=== PATIENT | female | born 1960 | race Caucasian/White ===

== ENCOUNTER → 2016-09-25 12:10 | Day surgery (SDC) | payer BC ==
[~2016-09-25 12:10] MED LIST: Buffered Lidocaine 1% SYRIN* 3 ML/SYR SYRINGE INTRADERM ONE; Bupivacaine 0.25% SDV* 30 ML ONE; Dexamethasone IV* 4 MG/ML 1 ML (4 MG) ONE; Ketorolac INJ* 30 MG/ML 1 ML VIAL ONE; Lidocaine 1% INJ* 10 MG/ML 30 ML SDV ONE; Lidocaine 2% PF* 5 ML VIAL ONE; Midazolam* 1 MG/ML 5 ML VIAL (5 MG) ONE; Ondansetron INJ* 2 MG/ML VIAL ONE; Phenylephrine INJ* 10 MG/ML 1 ML VIAL (10 MG) ONE; Phenylephrine IV* 40 MCG/ML 10 ML SYRINGE ONE; Propofol* 10 MG/ML 20 ML BTL IV PUSH ONE; Succinylcholine* 20 MG/ML 10 ML VIAL ONE; ceFAZolin 2 GM PREMIX(*) 2 GM/50 ML BAG IVPB ONE; fentaNYL* 50 MCG/ML 5 ML VIAL (250 MCG VIAL) ONE
[2016-09-25 14:07] VITALS: BP 124/77
== END | disposition home or self-care (01) ==
LOC: OREAST 12:10
PROVIDERS: ATTEND Plastic Surgery
PROC: 0LN70ZZ Release Right Hand Tendon, Open Approach (ICD-10-PCS; principal; 2016-09-25 13:30)
DX: M65.331 Trigger finger, right middle finger (principal)
CPT/HCPCS: J0330; J0690; J1100; J1885; J2001; J2250; J2405; J2704; J3010

== ENCOUNTER 2018-05-25 07:27 | Day surgery (SDC) | payer BC ==
[~2018-05-25 07:27] MED LIST changes: +Acetaminophen TAB* 325 MG PO ONE; +Buffered Lidocaine 0.9% SYRIN* 5 ML/SYR SYRINGE INTRADERM ONE; -Buffered Lidocaine 1% SYRIN* 3 ML/SYR SYRINGE INTRADERM ONE; -Bupivacaine 0.25% SDV* 30 ML ONE; -Dexamethasone IV* 4 MG/ML 1 ML (4 MG) ONE; +DiMENhydriNATE IV* 50 MG/ML VIAL IV PUSH PRN; +HYDROcodone/ACETAMIN 5-325 MG* 1 TAB PO PRN; -Ketorolac INJ* 30 MG/ML 1 ML VIAL ONE; -Lidocaine 1% INJ* 10 MG/ML 30 ML SDV ONE; -Lidocaine 2% PF* 5 ML VIAL ONE; -Midazolam* 1 MG/ML 5 ML VIAL (5 MG) ONE; +Naloxone* 0.4 MG/ML 1 ML VIAL IV PRN; +Ondansetron INJ* 2 MG/ML VIAL IV PRN; -Ondansetron INJ* 2 MG/ML VIAL ONE; +PROCHLORPERAZINE INJ 5 MG/ML 2 ML VIAL IV PRN; -Phenylephrine INJ* 10 MG/ML 1 ML VIAL (10 MG) ONE; -Phenylephrine IV* 40 MCG/ML 10 ML SYRINGE ONE; -Propofol* 10 MG/ML 20 ML BTL IV PUSH ONE; -Succinylcholine* 20 MG/ML 10 ML VIAL ONE; -ceFAZolin 2 GM PREMIX(*) 2 GM/50 ML BAG IVPB ONE; +fentaNYL* 50 MCG/ML 2 ML VIAL (100 MCG VIAL) IV PRN; -fentaNYL* 50 MCG/ML 5 ML VIAL (250 MCG VIAL) ONE
[2018-05-25] MEDS ORDERED: Famotidine IV* 10 MG/ML 2 ML (20 mg) ONE (07:30)
[2018-05-25] MEDS ORDERED: Acetaminophen TAB* 325 MG ONE (07:36)
[2018-05-25] MEDS ORDERED: fentaNYL* 50 MCG/ML 2 ML VIAL (100 MCG VIAL) ONE (08:22)
[2018-05-25] MEDS ORDERED: Midazolam* 1 MG/ML 2 ML VIAL (2 MG) ONE (08:22)
[2018-05-25] MEDS ORDERED: Neomycin/Polymy/Dex OPHTH.OIN* 3.5 GM ONE (08:52)
[2018-05-25] MEDS ORDERED: BSS OPTH.SOL* BTL ONE (08:52)
[2018-05-25] MEDS ORDERED: Oxymetazoline 0.05% NASAL SPR* 15 ML BTL ONE (08:52)
[2018-05-25] MEDS ORDERED: Lidocaine 4% TOPICAL* 50 ML TOP.SOLN ONE (08:52)
[2018-05-25] MEDS ORDERED: Lidocaine 2% PF * 5 ML VIAL ONE (09:21)
[2018-05-25] MEDS ORDERED: Dexamethasone IV* 4 MG/ML 1 ML (4 MG) ONE (09:21)
[2018-05-25] MEDS ORDERED: Propofol* 10 MG/ML 20 ML BTL IV PUSH ONE ×2 (09:21→09:28)
[2018-05-25] MEDS ORDERED: Ondansetron INJ* 2 MG/ML VIAL ONE (09:21)
[2018-05-25] MEDS ORDERED: Ketorolac INJ* 30 MG/ML 1 ML VIAL ONE (09:21)
[2018-05-25] MEDS ORDERED: Insulin LISPRO* 1 UNITS UNIT SUBCUT ONE (10:52)
[2018-05-25] MEDS ORDERED: Dextrose 50% Syringe 50 ML* 25 GM/50 ML SYRINGE IV PUSH PRN (10:52)
[2018-05-25 10:56] VITALS: BP 136/76
--- NOTE | 2018-05-26 03:05 | OP ---
DATE OF OPERATION: 05/25/[address] [facility] DATE OF : 64 SURGEON: Adama Pena MD REHAB SPECIALIST: None. ANESTHESIA: General. PRE-OP DIAGNOSIS: Nasolacrimal duct obstruction, right side. POST-OP DIAGNOSIS: Nasolacrimal duct obstruction, right side. OPERATIVE PROCEDURE: Probing and irrigation of nasolacrimal duct with placement of a Hall tube, right side. COMPLICATIONS: None. BLOOD LOSS: Approximately 5 cc. DESCRIPTION OF PROCEDURE: The patient was brought to the operating room and received general anesthesia. A pledget soaked in 50:50 mixture of 4% lidocaine and Afrin was inserted into the right nostril. Attention was directed to the right eyelid, where the superior and inferior puncta were found to be patent. The superior puncta was dilated with a punctal dilator and a #00 Vallejo's probe was passed through the superior puncta into the nose. It was then removed. The inferior puncta was dilated and again a #00 Vallejo's probe was passed through the puncta into the nose again and removed. At this point, a Hall tube with the metal olive tip was introduced into the superior puncta through the extent of the nasal lacrimal duct. The pledget was removed and a Hall hook was used to retrieve the metal end of the Hall tube from the nose. In a similar fashion, the inferior aspect of the Hall tube was placed through the inferior puncta and removed from the nose. Some bleeding occurred while searching for the tube end. This was stopped with pressure and time. The metal tips of the tube were cut and the silicon was tied securely. Suction at the end of the case was performed to make sure there is no more bleeding in the oral or nasopharynx. At the end of the case, the tube was in good position and there was no active bleeding. Topical Maxitrol ointment was placed into the right eye. The patient was awakened uneventfully and sent to recovery room in stable condition. Postop instructions and follow up appointment given. [id number]/CPS #: [id number] MTDD
== END 2018-05-25 10:49 | disposition home or self-care (01) ==
LOC: OREAST 07:27
PROVIDERS: ATTEND Ophthalmology
DX: H04.551 Acquired stenosis of right nasolacrimal duct (principal); Z87.891 Personal history of nicotine dependence; F41.8 Other specified anxiety disorders; M19.90 Unspecified osteoarthritis, unspecified site
CPT/HCPCS: A9270-GY; J1100; J1885; J2250; J2405; J2704; J3010

== ENCOUNTER 2019-01-24 14:20 | Emergency (ER) | payer BC ==
[2019-01-24 14:38] VITALS: BP 145/87
--- NOTE | 2019-01-24 15:22 | UC ---
Lower Extremity/Ankle HPI - HPI Summary HPI Summary: Patient is a 58-year-old female who presents to the urgent care with a chief complaint of having right ankle pain. Patient reports that she slipped and she rolled inwards her ankle and since then the patient is having pain. Patient is able to bear weight however is painful. Pain is approximately 5-6 out of 10 and is nonradiating. She denies any trauma to the head or neck. No other complaints - History of Current Complaint Chief Complaint: UCLowerExtremity Stated Complaint: ANKLE INJURY Time Seen by Provider: 01/24/19 15:08 Hx Obtained From: Patient Onset/Duration: Sudden Onset Pain Intensity: 7 - Allergies/Home Medications Allergies/Adverse Reactions: Allergies Allergy/AdvReac Type Severity Reaction Status Date / Time adhesive Allergy Intermediate Rash Verified 01/24/19 14:38 latex Allergy Intermediate Rash Verified 01/24/19 14:38 Hair Dye Allergy Severe Inflammation Uncoded 01/24/19 14:38 of skin PMH/Surg Hx/FS Hx/Imm Hx Previously Healthy: Yes Psychological History: Depression - Surgical History Surgical History: Yes Surgery Procedure, Year, and Place: ENDOMETRIAL ABLATION 2010 [facility] [place], [place]. HYSTERECTOMY 2014. TUBAL LIGATION [facility] [place], [place]. LITHOTRIPSY 15 YRS. Right middle trigger finger release 2016 - Family History Known Family History: Positive: Non-Contributory - Social History Alcohol Use: Occasionally Alcohol Amount: wine cooler once a week maybe Substance Use Type: None Smoking Status (MU): Current Every Day Smoker Type: Cigarettes Amount Used/How Often: 3 CIGS/ 10 YRS quit in 2007 - October 2016 started again, quit 05/23 Have You Smoked in the Last Year: Yes When Did the Patient Quit Smoking/Using Tobacco: 05/23 Review of Systems All Other Systems Reviewed And Are Negative: Yes Constitutional: Positive: Negative Skin: Positive: Negative Eyes: Positive: Negative ENT: Positive: Negative Respiratory: Positive: Negative Cardiovascular: Positive: Negative Gastrointestinal: Positive: Negative Genitourinary: Positive: Negative Motor: Positive: Negative Neurovascular: Positive: Negative Musculoskeletal: Positive: Other: - Right ankle pain Neurological: Positive: Negative Psychological: Positive: Negative Is Patient Immunocompromised?: No Physical Exam - Summary Physical Exam Summary: VITAL SIGNS: Reviewed. GENERAL: Patient is a well developed and nourished female who is lying comfortably in the stretcher. Patient is not in any acute respiratory distress. HEAD AND FACE: No signs of trauma. No ecchymosis, hematomas or skull depressions. No sinus tenderness. EYES: PERRLA, EOMI x 2, No injected conjunctiva, no nystagmus. EARS: Hearing grossly intact. Ear canals and tympanic membranes are within normal limits. MOUTH: Oropharynx within normal limits. NECK: Supple, trachea is midline, no adenopathy, no JVD, no carotid bruit, no c- spine tenderness, neck with full ROM. CHEST: Symmetric, no tenderness at palpation LUNGS: Clear to auscultation bilaterally. No wheezing or crackles. CVS: Regular rate and rhythm, S1 and S2 present, no murmurs or gallops appreciated. ABDOMEN: Soft, non-tender. No signs of distention. No rebound no guarding, and no masses palpated. Bowel sounds are normal. EXTREMITIES: Left ankle without any deformity, no ecchymosis, assistive swelling in the lateral right malleolus. Patient has good pulses and good capillary refill. NEURO: Alert and oriented x 3. No acute neurological deficits. Speech is normal and follows commands. SKIN: Dry and warm Triage Information Reviewed: Yes Appearance: Well-Appearing Vital Signs: Initial Vital Signs Temp 98.9 F 01/24/19 14:34 Pulse 90 01/24/19 14:34 Resp 18 01/24/19 14:34 BP 145/87 01/24/19 14:34 Pulse Ox 98 01/24/19 14:34 Vital Signs Reviewed: Yes Lower Extremity Course/Dx - Course Course Of Treatment: X-ray of the right ankle: no definite fracture noted. Inferior and posterior spurring on the heel noted. Therefore he since that the patient doesn't have a fracture at this time. Probably she has an). She doesn't have any tenderness in the foot therefore did not x-ray of the foot. Therefore, the patient was advised to take ibuprofen for pain and inability and rest. The patient understands and agrees. He she continues to have pain she should return to the urgent care or go to the emergency department for further workup and management. Patient is hemodynamically stable. - Differential Dx/Diagnosis Provider Diagnosis: Ankle sprain Discharge - Sign-Out/Discharge Documenting (check all that apply): Patient Departure All imaging exams completed and their final reports reviewed: Yes - Discharge Plan Condition: Stable Disposition: HOME Patient Education Materials: Ankle Sprain (ED) Referrals: Tunde Bains MD [Primary Care Provider] - Additional Instructions: Take ibuprofen or Tylenol for pain. Elevate the foot at all times. Apply ice as needed. Increase your fluid intake F/U with PCP in the next 2-3 days Return to the UC if symptoms worsen - Billing Disposition and Condition Condition: STABLE Disposition: Home
== END 2019-01-24 15:56 | disposition home or self-care (01) ==
LOC: UCEAST 14:20
DX: S93.401A Sprain of unspecified ligament of right ankle, initial encounter (principal); W01.0XXA Fall on same level from slipping, tripping and stumbling without subsequent striking against object, initial encounter; Y92.9 Unspecified place or not applicable; F17.210 Nicotine dependence, cigarettes, uncomplicated; F32.9 Major depressive disorder, single episode, unspecified; Z91.040 Latex allergy status
CPT/HCPCS: 99212; G0463

== ENCOUNTER → 2019-05-03 05:34 | Day surgery (SDC) | payer BC ==
[~2019-05-03 05:34] MED LIST changes: -Acetaminophen TAB* 325 MG PO ONE; -Buffered Lidocaine 0.9% SYRIN* 5 ML/SYR SYRINGE INTRADERM ONE; +Buffered Lidocaine 1% SYRIN* 1 ML/SYRINGE INTRADERM ONE; +Bupivacaine 0.25% SDV PF* 10 ML VIAL INJ ONE; -DiMENhydriNATE IV* 50 MG/ML VIAL IV PUSH PRN; -HYDROcodone/ACETAMIN 5-325 MG* 1 TAB PO PRN; +Lactated Ringers 1000 ML Bag* 1,000 ML IV SCH; +Lidocaine 2% PF * 5 ML VIAL ONE; +Midazolam* 1 MG/ML 2 ML VIAL (2 MG) ONE; -Ondansetron INJ* 2 MG/ML VIAL IV PRN; -PROCHLORPERAZINE INJ 5 MG/ML 2 ML VIAL IV PRN; +Propofol* 10 MG/ML 20 ML BTL ONE; +ceFAZolin 2 GM in NS PREMIX(*) 2 GM/100 ML BAG IVPB ONE; -fentaNYL* 50 MCG/ML 2 ML VIAL (100 MCG VIAL) IV PRN; +fentaNYL* 50 MCG/ML 2 ML VIAL (100 MCG VIAL) ONE
[2019-05-03 07:38] VITALS: BP 124/66
== END | disposition home or self-care (01) ==
LOC: OR 05:34
PROVIDERS: ATTEND Plastic Surgery
DX: M65.332 Trigger finger, left middle finger (principal)
CPT/HCPCS: J0690; J2250; J2704; J3010; J3490